=== PATIENT | female | born 1980 | race Caucasian/White ===

== ENCOUNTER → 2017-07-05 | Outpatient (CLI) | payer MEDICAID | END | disposition home or self-care (01) | LOC: LABWHC1 12:15 | PROVIDERS: ATTEND Obstetrics & Gynecology Obstetrics | DX: N92.5 Other specified irregular menstruation (principal) | CPT/HCPCS: 36415; 84702; 86850; 86900; 86901 ==

== ENCOUNTER → 2017-07-07 | Outpatient (CLI) | payer MEDICAID | END | disposition home or self-care (01) | LOC: LABWHC1 12:45 | PROVIDERS: ATTEND Obstetrics & Gynecology Obstetrics | DX: N92.5 Other specified irregular menstruation (principal) | CPT/HCPCS: 36415; 84702 ==

== ENCOUNTER → 2017-07-09 | Outpatient (CLI) | payer MEDICAID | END | disposition home or self-care (01) | LOC: LABWHC1 12:34 | PROVIDERS: ATTEND Obstetrics & Gynecology Obstetrics | DX: O20.0 Threatened abortion (principal) | CPT/HCPCS: 36415; 84702 ==

== ENCOUNTER 2017-07-19 01:42 | Emergency (ER) | payer MEDICAID ==
[2017-07-19] MEDS ORDERED: SODIUM CHLORIDE 0.9% 500 ML IV STA (01:55)
[2017-07-19 02:27] LABS: ALT 31 U/L (9-52); AST 18 U/L (14-36); Alkaline Phosphatase 73 U/L (38-126); Anion Gap 10 mmol/L; Blood Urea Nitrogen 12 mg/dL (7-17); Calcium 9.3 mg/dL (8.4-10.2); Carbon Dioxide 22 mmol/L (22-30); Chloride 105 mmol/L (98-107); Glucose 99 mg/dL (74-99); Non-African American GFR(MDRD) >60 (>60 ml/min/1.73 sqM); Potassium 3.7 mmol/L (3.5-5.1); Sodium 137 mmol/L (137-145); Total Bilirubin 0.4 mg/dL (0.2-1.3)
[2017-07-19 02:32] LABS: Basophils % (A) 1 %; CHCM 35.8; Eosinophils # (A) 0.1 k/uL (0-0.7); Eosinophils % (A) 1 %; HCT 39.8 % (34.0-46.0); HDW 2.48; HGB 14.3 gm/dL (11.4-16.0); Luc % (Auto) 1; Lymphocytes # (A) 2.2 k/uL (1.0-4.8); Lymphocytes % (A) 24 %; MCHC 35.8 g/dL (31.0-37.0); MCV 86.7 fL (80.0-100.0); Mean Platelet Volume 7.1; Monocytes # (A) 0.4 k/uL (0-1.0); Monocytes % (A) 4 %; Neutrophils # (A) 6.2 k/uL (1.3-7.7); Neutrophils % (A) 69 %; RDW 12.7 % (11.5-15.5); WBC (Perox) 9.27
--- NOTE | 2017-07-19 02:33 | ED ---
General Adult HPI - General Chief complaint: Vaginal Bleeding Stated complaint: 6 wks ,spotting Time Seen by Provider: 07/19/17 01:48 Source: patient, RN notes reviewed Mode of arrival: ambulatory Limitations: no limitations - History of Present Illness Initial comments: 37-year-old female who is a presents to the emergency department 6 weeks . With vaginal spotting. Patient states she noticed light brown and blood on the tissue paper when she wiped. Patient denies any pain or cramping. Patient states she is postop a reduced tubal ligation 2 months ago. Patient states that she was concerned due to the bleeding so she thought that she should be seen. She has not had an ultrasound yet in this . She denies any other complaints. Patient denies any recent fever, chills, shortness of breath, chest pain, back pain, abdominal pain, nausea vomiting, numbness or tingling, dysuria or hematuria, constipation or diarrhea, headaches or visual changes, or any other current symptoms. - Related Data Home Medications Medication Instructions Recorded Confirmed No Known Home Medications [No 07/19/17 07/19/17 Known Home Medications] Allergies Allergy/AdvReac Type Severity Reaction Status Date / Time No Known Allergies Allergy Verified 07/19/17 01:47 Review of Systems ROS Statement: Those systems with pertinent positive or pertinent negative responses have been documented in the HPI. ROS Other: All systems not noted in ROS Statement are negative. Past Medical History Past Medical History: No Reported History History of Any Multi-Drug Resistant Organisms: None Reported Past Surgical History: Tubal Ligation Additional Past Surgical History / Comment(s): reversal tubal Past Psychological History: No Psychological Hx Reported Smoking Status: Current some day smoker Past Alcohol Use History: None Reported Past Drug Use History: None Reported General Exam Limitations: no limitations General appearance: alert, in no apparent distress Neck exam: Present: normal inspection. Absent: tenderness, meningismus, lymphadenopathy Respiratory exam: Present: normal lung sounds bilaterally. Absent: respiratory distress, wheezes, rales, rhonchi, stridor Cardiovascular Exam: Present: regular rate, normal rhythm, normal heart sounds. Absent: systolic murmur, diastolic murmur, rubs, gallop, clicks Neurological exam: Present: alert, oriented X3 Psychiatric exam: Present: normal affect, normal mood Skin exam: Present: warm, dry, intact, normal color. Absent: rash Course Vital Signs 07/19/17 07/19/17 01:45 03:26 Temperature 98.0 F 98.2 F Pulse Rate 107 H 80 Respiratory 20 16 Rate Blood Pressure 128/73 114/54 O2 Sat by Pulse 99 100 Oximetry Medical Decision Making - Medical Decision Making 37-year-old female presents for vaginal spotting and . This time lab work has been reviewed and is negative. This time ultrasound shows a 6 weeks . This time we did discuss follow-up with . We discussed possible etiologies. we discussed Patient questions. She stated that she understood and she is the plan. - Lab Data Result diagrams: 07/19/17 02:05 07/19/17 02:05 Lab Results 07/19/17 07/19/17 07/19/17 Range/Units 02:05 02:05 02:05 WBC 9.0 (3.8-10.6) k/uL RBC 4.60 (3.80-5.40) m/uL Hgb 14.3 (11.4-16.0) gm/dL Hct 39.8 (34.0-46.0) % MCV 86.7 (80.0-100.0) fL MCH 31.0 (25.0-35.0) pg MCHC 35.8 (31.0-37.0) g/dL RDW 12.7 (11.5-15.5) % Plt Count 221 (150-450) k/uL Neutrophils % 69 % Lymphocytes % 24 % Monocytes % 4 % Eosinophils % 1 % Basophils % 1 % Neutrophils # 6.2 (1.3-7.7) k/uL Lymphocytes # 2.2 (1.0-4.8) k/uL Monocytes # 0.4 (0-1.0) k/uL Eosinophils # 0.1 (0-0.7) k/uL Basophils # 0.0 (0-0.2) k/uL Sodium 137 (137-145) mmol/L Potassium 3.7 (3.5-5.1) mmol/L Chloride 105 (98-107) mmol/L Carbon Dioxide 22 (22-30) mmol/L Anion Gap 10 mmol/L BUN 12 (7-17) mg/dL Creatinine 0.70 (0.52-1.04) mg/dL Est GFR (MDRD) Af Amer >60 (>60 ml/min/1.73 sqM) Est GFR (MDRD) Non-Af >60 (>60 ml/min/1.73 sqM) Glucose 99 (74-99) mg/dL Calcium 9.3 (8.4-10.2) mg/dL Total Bilirubin 0.4 (0.2-1.3) mg/dL AST 18 (14-36) U/L ALT 31 (9-52) U/L Alkaline Phosphatase 73 (38-126) U/L Total Protein 7.0 (6.3-8.2) g/dL Albumin 4.5 (3.5-5.0) g/dL HCG, Quant 42683.6 mIU/mL Urine Color Urine Appearance (Clear) Urine pH (5.0-8.0) Ur Specific Sula (1.001-1.035) Urine Protein (Negative) Urine Glucose (UA) (Negative) Urine Ketones (Negative) Urine Blood (Negative) Urine Nitrite (Negative) Urine Bilirubin (Negative) Urine Urobilinogen (<2.0) mg/dL Ur Leukocyte Esterase (Negative) Blood Type B Positive Blood Type Recheck No 07/19/17 Range/Units 03:00 WBC (3.8-10.6) k/uL RBC (3.80-5.40) m/uL Hgb (11.4-16.0) gm/dL Hct (34.0-46.0) % MCV (80.0-100.0) fL MCH (25.0-35.0) pg MCHC (31.0-37.0) g/dL RDW (11.5-15.5) % Plt Count (150-450) k/uL Neutrophils % % Lymphocytes % % Monocytes % % Eosinophils % % Basophils % % Neutrophils # (1.3-7.7) k/uL Lymphocytes # (1.0-4.8) k/uL Monocytes # (0-1.0) k/uL Eosinophils # (0-0.7) k/uL Basophils # (0-0.2) k/uL Sodium (137-145) mmol/L Potassium (3.5-5.1) mmol/L Chloride (98-107) mmol/L Carbon Dioxide (22-30) mmol/L Anion Gap mmol/L BUN (7-17) mg/dL Creatinine (0.52-1.04) mg/dL Est GFR (MDRD) Af Amer (>60 ml/min/1.73 sqM) Est GFR (MDRD) Non-Af (>60 ml/min/1.73 sqM) Glucose (74-99) mg/dL Calcium (8.4-10.2) mg/dL Total Bilirubin (0.2-1.3) mg/dL AST (14-36) U/L ALT (9-52) U/L Alkaline Phosphatase (38-126) U/L Total Protein (6.3-8.2) g/dL Albumin (3.5-5.0) g/dL HCG, Quant mIU/mL Urine Color Yellow Urine Appearance Clear (Clear) Urine pH 6.5 (5.0-8.0) Ur Specific Sula 1.014 (1.001-1.035) Urine Protein Negative (Negative) Urine Glucose (UA) Negative (Negative) Urine Ketones Negative (Negative) Urine Blood Negative (Negative) Urine Nitrite Negative (Negative) Urine Bilirubin Negative (Negative) Urine Urobilinogen <2.0 (<2.0) mg/dL Ur Leukocyte Esterase Negative (Negative) Blood Type Blood Type Recheck Disposition Clinical Impression: Vaginal bleeding during , antepartum Disposition: HOME SELF-CARE Condition: Stable Instructions: Threatened Miscarriage (ED) Additional Instructions: Please use medication as discussed. Please follow up with family doctor if symptoms have not improved over the next two days. Please return to the emergency room if your symptoms increase or worsen or for any other concerns. Referrals: Frank Moon MD [Primary Care Provider] - 1-2 days Time of Disposition: 04:08
[2017-07-19 03:11] LABS: Appearance,Urine Clear (Clear); Bilirubin,Urine Negative (Negative); Glucose,Urine (UA) Negative (Negative); Ketones,Urine Negative (Negative); Leukocyte Esterase,Urine Negative (Negative); Nitrite,Urine Negative (Negative); PH, Urine 6.5 (5.0-8.0); Protein,Urine Negative (Negative); Specific Gravity,Urine 1.014 (1.001-1.035); UA Billing (MACRO vs. MICRO) CHEM; Urobilinogen,Urine <2.0 mg/dL (<2.0)
[2017-07-19 03:27] VITALS: BP 114/54; PULSE 80; RESP 16; TEMP 98.2
--- NOTE | 2017-07-19 04:07 | US ---
EXAM: US First Trimester, Transabdominal US , Transvaginal CLINICAL HISTORY: Reason: Pain, spotting. LMP of 06/06/2017. TECHNIQUE: Real-time transabdominal and transvaginal obstetrical ultrasound of the maternal pelvis and a first trimester with image documentation. Transvaginal imaging was used for better evaluation of the fetus and adnexa. COMPARISON: No relevant prior studies available. FINDINGS: Gestation: CRL measures 0.4 cm, corresponding to an ultrasound gestational age of 6 weeks 1 day. The yolk sac measures 2 mm, which is normal. Heart rate of 176 beats per minutes. EDC: 03/13/18. Placenta/amniotic fluid: Cannot be adequately evaluated due to the early gestational age. Uterus/cervix: The uterus measures 8.9 x 5.6 x 5.7 cm. No myometrial mass. Ovaries: The right ovary was not visualized secondary to overlying bowel gas. The left ovary measures 3.1 x 2.4 x 2.5 cm. The left ovary is unremarkable. Free fluid: No evidence of free fluid. IMPRESSION: Single live intrauterine gestation with an average ultrasound age of 6 weeks 1 day and a heart rate of 176 bpm.
== END 2017-07-19 04:13 | disposition home or self-care (01) ==
LOC: EC 01:42
DX: O20.9 Hemorrhage in early pregnancy, unspecified (principal); O99.331 Smoking (tobacco) complicating pregnancy, first trimester; F17.200 Nicotine dependence, unspecified, uncomplicated; Z3A.01 Less than 8 weeks gestation of pregnancy
CPT/HCPCS: 36415; 76801; 80053; 81003; 84702; 85025; 86900; 86901; 99284

== ENCOUNTER 2018-03-08 05:59 | Inpatient (IN) | payer MEDICAID ==
[2018-03-08] MEDS ORDERED: LIDOCAINE 1% (PF) 10 MG/ML (30 ML SDV) SQ PRN (06:06)
[2018-03-08] MEDS ORDERED: OXYTOCIN 10 UNIT/ML 1 ML VIAL IM PRN (06:06)
[2018-03-08] MEDS ORDERED: TERBUTALINE 1 MG/ML VIAL SQ PRN (06:06)
[2018-03-08] MEDS ORDERED: METHYLERGONOVINE 0.2 MG/ML 1 ML AMP IM PRN (06:06)
[2018-03-08] MEDS ORDERED: CARBOPROST TROMETHAMINE 250 MCG/ML 1 ML AMP IM PRN (06:06)
[2018-03-08 06:15] VITALS: BMI 30.9
[2018-03-08] MEDS ORDERED: OXYTOCIN 20 UNITS/1000 ML NS 1,000 ML IV SCH ×2 (06:15→14:15)
[2018-03-08] MEDS: LACTATED RINGERS 1,000 ML IV SCH ×2 (06:23→08:56)
[2018-03-08 06:47] LABS: Basophils % (A) 0 %; Eosinophils # (A) 0.1 k/uL (0-0.7); Eosinophils % (A) 1 %; HGB 11.7 gm/dL (11.4-16.0); Lymphocytes # (A) 2.1 k/uL (1.0-4.8); Lymphocytes % (A) 19 %; MCH 31.3 pg (25.0-35.0); MCHC 35.3 g/dL (31.0-37.0); MCV 88.6 fL (80.0-100.0); Mean Platelet Volume 7.8; Monocytes # (A) 0.8 k/uL (0-1.0); Monocytes % (A) 7 %; Neutrophils % (A) 71 %; Platelet Count 243 k/uL (150-450); RBC 3.73 m/uL (3.80-5.40); RDW 13.7 % (11.5-15.5); WBC 11.2 k/uL (3.8-10.6)
--- NOTE | 2018-03-08 08:22 | P.HPOB ---
History of Present Illness H&P Date: 03/08/18 Chief Complaint: IUP at 39-2/7 weeks, induction of labor This is a 38-year-old 3 para 2001 at 39-2/7 weeks, estimated due date of 03/13/2018. Patient presents for elective induction of labor. She she denies contractions, notes good movement, no loss of fluid or vaginal bleeding blood work showed a blood type of B+, rubella immune, hepatitis B surface antigen negative, RPR nonreactive, HIV negative, GBS negative. Review of Systems Constitutional: Denies chills, Denies fever Cardiovascular: Reports edema, Denies chest pain Respiratory: Denies cough, Denies dyspnea Gastrointestinal: Denies constipation, Denies diarrhea Genitourinary: Reports Past Medical History Past Medical History: No Reported History History of Any Multi-Drug Resistant Organisms: None Reported Past Surgical History: Tubal Ligation Additional Past Surgical History / Comment(s): reversal tubal Past Anesthesia/Blood Transfusion Reactions: No Reported Reaction Past Psychological History: No Psychological Hx Reported Smoking Status: Former smoker Past Alcohol Use History: None Reported Past Drug Use History: None Reported - Past Family History Mother Family Medical History: No Reported History Medications and Allergies Home Medications Medication Instructions Recorded Confirmed Type Pnv No.95/Ferrous Fum/Folic AC 1 tab PO ONCE 03/08/18 03/08/18 History [ Multivitamin Tablet] Allergies Allergy/AdvReac Type Severity Reaction Status Date / Time No Known Allergies Allergy Verified 07/19/17 01:47 Exam Osteopathic Statement: *. No significant issues noted on an osteopathic structural exam other than those noted in the History and Physical/Consult. - Vital Signs Vital signs: Vital Signs Temp Pulse Resp BP Pulse Ox 03/08/18 06:07 97 F L 85 16 122/69 100 Intake and Output 03/07/18 03/08/18 03/08/18 22:59 06:59 14:59 Other: Weight 84.368 kg - OBG Physical Exam Abdomen: Gravid Cervix: 4/70/-2 amniotomy preformed with clear fluid noted on exam. Results Result Diagrams: 03/08/18 06:25 Abnormal Lab Results - Last 24 Hours (Table) 03/08/18 Range/Units 06:25 WBC 11.2 H (3.8-10.6) k/uL RBC 3.73 L (3.80-5.40) m/uL Hct 33.0 L (34.0-46.0) % Neutrophils # 8.0 H (1.3-7.7) k/uL Assessment and Plan (1) Term Current Visit: Yes Status: Acute Code(s): Z34.80 - ENCOUNTER FOR SUPRVSN OF NORMAL , UNSP TRIMESTER SNOMED Code(s): 17085211 (2) AMA (advanced maternal age) multigravida 35+ Current Visit: Yes Status: Acute Code(s): O09.529 - SUPERVISION OF ELDERLY MULTIGRAVIDA, UNSPECIFIED TRIMESTER SNOMED Code(s): 986430845 Plan: Plan Pitocin induction of labor. Patient does request epidural for analgesia when uncomfortable. Anticipate spontaneous vaginal delivery later this afternoon. Time with Patient: Less than 30
[2018-03-08] MEDS ORDERED: BUPIVACAINE (PF) 0.25% 30 ML VIAL ONE (09:00)
[2018-03-08] MEDS ORDERED: SODIUM CHLORIDE 0.9% 100 ML BAG ONE (09:00)
[2018-03-08] MEDS ORDERED: fentaNYL (PF) 50 MCG/ML 5 ML AMP ONE (09:00)
[2018-03-08] MEDS ORDERED: BUPIVACAINE (PF) 0.25% 25 ML, fentaNYL (PF) 200 MCG in SODIUM CHLORIDE 0.9% 71 ML EPIDURAL ONE (09:26)
[2018-03-08] MEDS ORDERED: diphenhydrAMINE 50 MG CAP PO PRN (14:08)
[2018-03-08] MEDS ORDERED: HYDROCORTISONE 2.5% RECTAL CREAM 30 GM TUBE RECTAL PRN (14:08)
[2018-03-08] MEDS ORDERED: diphenhydrAMINE 50 MG/ML 1 ML VIAL IVP PRN ×2 (14:08)
[2018-03-08] MEDS ORDERED: diphenhydrAMINE 25 MG CAP PO PRN (14:08)
[2018-03-08] MEDS ORDERED: BENZOCAINE/MENTHOL SPRAY 1 GM/SPRAY AEROSOL TOPICAL PRN (14:08)
[2018-03-08] MEDS ORDERED: LANOLIN CREAM 5 GM TUBE TOPICAL PRN (14:08)
[2018-03-08] MEDS ORDERED: ZOLPIDEM 5 MG TAB PO PRN (14:08)
[2018-03-08] MEDS ORDERED: WITCH HAZEL 1 EACH MED..PAD TOPICAL PRN (14:08)
[2018-03-08] MEDS ORDERED: ACETAMINOPHEN TAB 325 MG TAB PO PRN (14:08)
[2018-03-08] MEDS ORDERED: SIMETHICONE 80 MG CHEWABLE PO PRN (14:08)
--- NOTE | 2018-03-08 14:11 | P.PROBDLV ---
Vaginal Delivery Note - . Vaginal Delivery Note: This is a 38-year-old 3 para 2001 at 39-2/7 weeks that presented this morning for elective induction of labor. She was 4 cm on admission amniotomy was performed and clear fluid was obtained. She progressed through labor eventually getting an epidural for analgesia and progressed to complete. She began pushing and had a normal spontaneous vaginal delivery of a viable female infant at 1353, weight of 7 lbs. 9 oz., Apgars of 99 at one and 5 minutes respectively. Next Patient was noted to be the head was delivered gently followed by slight downward traction to deliver the anterior shoulder followed by upward traction to deliver the posterior shoulder the body was then delivered completely and placed on the maternal abdomen. There was a spontaneous cry noted at . The umbilical cord was then doubly clamped and cut and the placenta was delivered intact with a three-vessel cord. Inspection the patient' s vaginal vault no lacerations were noted. The uterus was noted to be firm and below the umbilicus at this time. Bleeding was minimal. Assessment blood loss for this delivery was 300 mL Mother and tolerated delivery well and are resting comfortably
[2018-03-08] MEDS: SENNOSIDES-DOCUSATE SODIUM 1 EACH TAB PO SCH (19:50)
[2018-03-08] MEDS: IBUPROFEN 600 MG TAB PO PRN (22:33)
--- NOTE | 2018-03-09 08:09 | P.DS ---
Providers Date of admission: 03/08/18 05:59 Expected date of discharge: 03/09/18 Attending physician: Nelia Gordon Primary care physician: Frank Moon - Nikita Diagnosis(es) (1) Term Current Visit: Yes Status: Acute (2) AMA (advanced maternal age) multigravida 35+ Current Visit: Yes Status: Acute (3) Status post vaginal delivery Current Visit: Yes Status: Acute Hospital Course: This is a 38-year-old 3 para 2001 at 39-2/7 weeks that presented to labor and delivery yesterday for elective induction of labor. Patient was started on Pitocin induction, amniotomy was performed yielding clear fluid. Patient eventually got an epidural for analgesia. Patient progressed to complete and had normal spontaneous vaginal delivery of a 5 viable female infant. time of 1353, weight of 7 lbs. 10 oz., Apgars of 9 and 9 at one and 5 minutes respectively. Patient's course has been uneventful. On this day #1 she is ambulating and voiding without difficulty, she is tolerating a regular diet without nausea or vomiting, her lochia is minimal, breast-feeding is going well. She does wish to be discharged home today Patient Condition at Discharge: Good Plan - Discharge Summary New Discharge Prescriptions: No Action Pnv No.95/Ferrous Fum/Folic AC [ Multivitamin Tablet] 1 tab PO ONCE Discharge Medication List Pnv No.95/Ferrous Fum/Folic AC [ Multivitamin Tablet] 1 tab PO ONCE [History] Follow up Appointment(s)/Referral(s): Nelia Gordon DO [Doctor of Osteopathic Medicine] - 1 Week Patient Instructions/Handouts: Vaginal Delivery (DC) Discharge Disposition: HOME SELF-CARE
[2018-03-09] MEDS: SENNOSIDES-DOCUSATE SODIUM 1 EACH TAB PO SCH (08:31)
[2018-03-09] MEDS: IBUPROFEN 600 MG TAB PO PRN (08:31)
[2018-03-09 09:18] VITALS: BP 107/67; PULSE 99; RESP 18; TEMP 97.6
== END 2018-03-09 14:30 | disposition home or self-care (01) | DRG 775 ==
LOC: 4FBP 05:59
PROVIDERS: ADMIT Obstetrics & Gynecology Obstetrics; ATTEND Obstetrics & Gynecology Obstetrics
PROC: 3E033VJ Introduction of Other Hormone into Peripheral Vein, Percutaneous Approach (ICD-10-PCS; principal; 2018-03-08)
PROC: 00HU33Z Insertion of Infusion Device into Spinal Canal, Percutaneous Approach (ICD-10-PCS; principal; 2018-03-08)
PROC: 10907ZC Drainage of Amniotic Fluid, Therapeutic from Products of Conception, Via Natural or Artificial Opening (ICD-10-PCS; principal; 2018-03-08)
PROC: 3E0R3NZ Introduction of Analgesics, Hypnotics, Sedatives into Spinal Canal, Percutaneous Approach (ICD-10-PCS; principal; 2018-03-08)
PROC: 10E0XZZ Delivery of Products of Conception, External Approach (ICD-10-PCS; principal; 2018-03-08)
DX: O80 Encounter for full-term uncomplicated delivery (principal); Z3A.39 39 weeks gestation of pregnancy; Z87.891 Personal history of nicotine dependence; Z37.0 Single live birth
CPT/HCPCS: 85025; 88307

== ENCOUNTER → 2021-07-30 | Outpatient (CLI) | payer MEDICAID, OTHER | END | disposition home or self-care (01) | LOC: LABWHC1 20:01 | PROVIDERS: ATTEND Emergency Medicine | DX: Z20.822 Contact with and (suspected) exposure to COVID-19 (principal) | CPT/HCPCS: 87635 ==